=== PATIENT | female | born 1990 ===

== ENCOUNTER 2018-07-12 03:06 | Emergency (ER) | payer SELFPAY ==
[2018-07-12 03:17] VITALS: BMI 22.1
[2018-07-12 03:22] VITALS: BP 148/94; PULSE 108; RESP 18; TEMP 97.5; O2SAT 100
--- NOTE | 2018-07-12 03:35 | ED PDOC ---
HPI: Female Pain Time Seen by Provider: 07/12/18 03:16 Chief Complaint (Nursing): Female Genitourinary History Per: Patient Additional Complaint(s): Dysuria, hematuria, frequency since 2300 yesterday. Took 1 dose of Pyridium. Pt. came to ED as she is concerned she may require abx. Denies fever, chills, back pain, flank pain, hematuria, incontinence, abd pain, N/V. Past Medical History Reviewed: Historical Data, Nursing Documentation, Vital Signs Vital Signs: Last Vital Signs Temp 97.5 F L 07/12/18 03:17 Pulse 108 H 07/12/18 03:17 Resp 18 07/12/18 03:17 BP 148/94 H 07/12/18 03:17 Pulse Ox 100 07/12/18 03:17 - Medical History PMH: No Chronic Diseases, Hypothyroidism - Family History Family History: States: No Known Family Hx - Home Medications Home Medications: Ambulatory Orders Medication Instructions Recorded Nitrofurantoin Macrocrystals 100 mg PO BID #13 cap 07/12/18 [Macrobid] - Allergies Allergies/Adverse Reactions: Allergies Allergy/AdvReac Type Severity Reaction Status Date / Time No Known Allergies Allergy Verified 07/12/18 03:17 Review of Systems ROS Statement: Except As Marked, All Systems Reviewed And Found Negative Genitourinary Female: Positive for: Dysuria, Frequency Physical Exam - Physical Exam Appears: Positive for: Well, Non-toxic, No Acute Distress Skin: Positive for: Normal Color, Warm. Negative for: Rash Eye Exam: Positive for: Normal appearance Gastrointestinal/Abdominal: Positive for: Normal Exam, Soft. Negative for: Tenderness Back: Negative for: L CVA Tenderness, R CVA Tenderness Neurologic/Psych: Positive for: Alert, Oriented (x3) - Laboratory Results Urine POC: Negative Urine dip results: Positive for: Leukocyte Esterase (large), Nitrate (positive) - ECG O2 Sat by Pulse Oximetry: 100 - Progress ED Course And Treament: Macrobid PO, urine C&S ordered. Disposition - Clinical Impression Clinical Impression: UTI (urinary tract infection) - Patient ED Disposition Is Patient to be Admitted: No - Disposition Referrals: [facility] [Outside] Disposition: Routine/Home Disposition Time: 03:33 Condition: STABLE Additional Instructions: FOLLOW UP WITH [facility] FOR FURTHER EVALUATION RETURN TO ED IMMEDIATELY IF SYMPTOMS WORSEN ANNAMARIE BANSAL, thank you for letting us take care of you today. Your provider was Kt Woodall MD and you were treated for POSSIBLE UTI. The emergency medical care you received today was directed at your acute symptoms. If you were prescribed any medication, please fill it and take as directed. It may take several days for your symptoms to resolve. Return to the Emergency Department if your symptoms worsen, do not improve, or if you have any other problems. Please contact your doctor or call one of the physicians/clinics you have been referred to that are listed on the Patient Visit Information form that is included in your discharge packet. Bring any paperwork you were given at discharge with you along with any medications you are taking to your follow up visit. Our treatment cannot replace ongoing medical care by a primary care provider outside of the emergency department. Thank you for allowing the [facility] team to be part of your care today. If you had an X-Ray or CT scan: A Radiologist will review the ED reading if any change in treatment is needed we will contact you. If you had a blood, urine, or wound culture: It will take several days for the results, if any change in treatment is needed we will contact you. If you had an STI test: It will take 48 hours for the results. Please call after 1 week if you have not heard back. Prescriptions: Nitrofurantoin Macrocrystals [Macrobid] 100 mg PO BID #13 cap Instructions: Urinary Tract Infection, Adult (DC) Forms: [employer] (Arabic), [facility] ED School/Work Excuse Print Language: TUVALU[place]
== END 2018-07-12 03:41 | disposition home or self-care (01) ==
LOC: H.ER 03:06
DX: N39.0 Urinary tract infection, site not specified (principal)